=== PATIENT | female | born 1985 | race Caucasian/White ===

== ENCOUNTER 2018-08-16 10:09 | Inpatient (IN) ==
[2018-08-16] MEDS ORDERED: RINGER'S SOLUTION,LACTATED 1,000 ML IV ONE (10:56)
[2018-08-16] MEDS ORDERED: DEXTROSE 5%-LACTATED RINGERS 1,000 ML IV PRN (10:56)
[2018-08-16] MEDS ORDERED: OXYTOCIN/DEXTROSE 5%-WATER 30 UNITS/500 ML BAG IV ONE ×2 (10:56→17:50)
[2018-08-16] MEDS ORDERED: LIDOCAINE HCL 50 ML VIAL PERI PRN (10:56)
[2018-08-16] MEDS ORDERED: ONDANSETRON HCL/PF 2 MG/ML VIAL IV PRN ×3 (10:56→14:39)
--- NOTE | 2018-08-16 13:04 | HP ---
Chief Complaint - Chief Complaint Date of Service: 08/16/18 Time of Service: 12:55 Chief Complaint: decreased movement and mild contractions History of Present Illness: 32 yo at 38 3/7 wks presents to L&D in labor. Patient was seen in office for decreased movement and was noted to have elevated BPs and on NST to have frequent contractions. Her cervix was dilated to 6/80/-2, so she was sent to L&D. 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 Rh negative Rubella non immune GBS negative Medical History (Last Reviewed 08/16/18 @ 08:59 by Michael Forbes RN) Anemia affecting (Acute) Onset Date: 05/30/18 Psoriasis (Chronic) Onset Date: ~2012 Migraine (Chronic) Onset Date: Unknown Vaginal discharge Onset Date: 03/05/14 Vaginal lesion Onset Date: 03/05/14 Abnormal Pap smear of cervix Onset Date: 11/02/08 Last pap 03/13/14 WNL Anemia As a teenager. 06/25/12 w/ . 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 Family History: Family History (Last Reviewed 08/16/18 @ 08:59 by Michael Forbes RN) Mother Anemia Diabetes Hypercholesterolemia Thyroid disease Peripheral vascular disease Uterine fibroid Father Hypercholesterolemia Hypertension Lung cancer "Blue Feet Syndrome" Daughter Cystic fibrosis Aunt Anemia Asthma Diabetes Thyroid disease Molar Grandfather , Paternal Grandfather Hypercholesterolemia Hypertension Lung cancer Grandfather Diabetes Peripheral vascular disease Arthritis Testicular cancer Aortic aneurysm Prostate cancer Kidney problem Grandmother Arthritis Uterine fibroid Asthma Diabetes Hypertension Uncle Diabetes Colitis Inguinal hernia Social History: Preferred Language Yoruba Smoking Status Never smoker (Last Reviewed 08/16/18 @ 08:59 by Michael Forbes RN) No Social History Section defined Review Of Systems (GEN) - Review of Systems Generalized/Overall Review: Present: No Symptoms Reported EENTM: Present: No Symptoms Reported Respiratory: Present: No Symptoms Reported Cardiac: Present: No Symptoms Reported Abdominal: Present: No Symptoms Reported Genitourinary: Present: No Symptoms Reported Musculoskeletal: Present: No Symptoms Reported Neurological: Present: No Symptoms Reported Skin: Present: No Symptoms Reported Endocrine: Present: No Symptoms Reported Immunizations: IMMUNIZATION HX Immunizations Up to Date Yes Allergies/Adverse Reactions: Allergies Allergy/AdvReac Type Severity Reaction Status Date / Time No Known Allergies Allergy Verified 08/16/18 10:29 Home Medications: HOME MEDICATIONS vitamin,calcium,jefqhsdn-ewri-jajrb acid tablet 2 tab PO DAILY tab 02/04/18 [Last Taken 1 Day Ago ~07/04/18] magnesium 250 mg tablet 800 mg PO DAILY tab 04/02/18 [Last Taken 08/16/18] riboflavin (vitamin B2) 50 mg tablet 50 mg PO DAILY 05/02/18 [Last Taken 08/16/18] docusate sodium 100 mg capsule 100 mg PO BID PRN 05/30/18 [Last Taken 08/16/18] ferrous sulfate 325 mg (65 mg iron) tablet,delayed release 325 mg PO BID tab 05/31/18 [Last Taken 08/16/18] valacyclovir 1 gram tablet 1,000 mg PO DAILY #30 tab 08/01/18 [Last Taken 08/16/18] Exam - Exam Vital Signs: Vital Signs - Last Taken Temp 36.4 C 08/16/18 11:33 Pulse 78 08/16/18 11:33 Resp 18 08/16/18 11:33 BP 133/84 08/16/18 11:33 Pulse Ox 98 08/16/18 11:33 Constitutional: Present: Alert, Oriented x3, Cooperative, No distress ENT Exam: Present: hearing grossly normal Neck: Present: non-tender Respiratory: Present: lungs clear, no respiratory distress Cardiovascular/Chest: Present: normal peripheral pulses, regular rate, rhythm, no edema Abdomen: Present: soft, nontender, no rebound tenderness, other - gravid /Rectal: Present: Other - 6/80/-2 Extremity: Present: non-tender, no pedal edema, no calf tenderness Skin Exam: Present: normal color, warm/dry, no cyanosis Lymphatic: Present: no adenopathy Neurologic: Present: alert, normal mood/affect, oriented x 3 Appearance: Present: appropriate appearance, appropriate insight Eye contact: Present: cooperative, good eye contact Thoughts: Present: normal thought pattern Assessment/Plan - Assessment/Plan (1) Labor established Assessment: Admit for routine management of labor. Epidural and pitocin PRN. Problem: Acute (2) Anemia affecting Problem: Acute (3) Psoriasis Problem: Chronic (4) Migraine Problem: Chronic
[2018-08-16] MEDS ORDERED: BUPIVACAINE HCL/0.9 % NACL/PF 250 ML EP PRN ×2 (13:42→14:39)
[2018-08-16] MEDS ORDERED: NALOXONE HCL 1 MG/1 ML SYRG IV PRN ×2 (13:42→14:39)
[2018-08-16] MEDS ORDERED: BUPIVACAINE HCL/PF 30 ML VIAL EP SCH (13:45)
[2018-08-16] MEDS ORDERED: fentaNYL CITRATE/PF 50 MCG/ML AMPUL IT SCH (14:45)
--- NOTE | 2018-08-16 14:52 | ANES ---
Anesthesia Pre Procedure Eval Vitals/Labs: Last Vital Signs Temp 36.4 C 08/16/18 11:33 Pulse 78 08/16/18 11:33 Resp 18 08/16/18 11:33 BP 133/84 08/16/18 11:33 Pulse Ox 98 08/16/18 11:33 HOME MEDICATIONS vitamin,calcium,gbvshqbj-aibh-rewdn acid tablet 2 tab PO DAILY tab 02/04/18 [Last Taken 1 Day Ago ~07/04/18] magnesium 250 mg tablet 800 mg PO DAILY tab 04/02/18 [Last Taken 08/16/18] riboflavin (vitamin B2) 50 mg tablet 50 mg PO DAILY 05/02/18 [Last Taken 08/16/18] docusate sodium 100 mg capsule 100 mg PO BID PRN 05/30/18 [Last Taken 08/16/18] ferrous sulfate 325 mg (65 mg iron) tablet,delayed release 325 mg PO BID tab 05/31/18 [Last Taken 08/16/18] valacyclovir 1 gram tablet 1,000 mg PO DAILY #30 tab 08/01/18 [Last Taken 08/16/18] Allergies/Adverse Reactions: Allergies Allergy/AdvReac Type Severity Reaction Status Date / Time No Known Allergies Allergy Verified 08/16/18 10:29 - Planned Procedure Planned Procedure: ACTIVE LABOR Medication List Reviewed:: Yes Allergies Verified: Yes Medical History (Last Reviewed 08/16/18 @ 14:49 by Paolo Webb CRNA) Anemia affecting (Acute) Onset Date: 05/30/18 Psoriasis (Chronic) Onset Date: ~2012 Migraine (Chronic) Onset Date: Unknown Vaginal discharge Onset Date: 03/05/14 Vaginal lesion Onset Date: 03/05/14 Abnormal Pap smear of cervix Onset Date: 11/02/08 Last pap 03/13/14 WNL Anemia As a teenager. 06/25/12 w/ . 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 Family History (Last Reviewed 08/16/18 @ 14:50 by Paolo Webb CRNA) Mother Anemia Diabetes Hypercholesterolemia Thyroid disease Peripheral vascular disease Uterine fibroid Father Hypercholesterolemia Hypertension Lung cancer "Blue Feet Syndrome" Daughter Cystic fibrosis Aunt Anemia Asthma Diabetes Thyroid disease Molar Grandfather , Paternal Grandfather Hypercholesterolemia Hypertension Lung cancer Grandfather Diabetes Peripheral vascular disease Arthritis Testicular cancer Aortic aneurysm Prostate cancer Kidney problem Grandmother Arthritis Uterine fibroid Asthma Diabetes Hypertension Uncle Diabetes Colitis Inguinal hernia - Family Anesthesia History Family History:: no untoward family reactions to anesthesia, no familial bleeding tendencies, no family history of clotting disorders, no family history of premature - Airway/Neck/Teeth Within Normal Limits:: Yes Teeth Condition: intact Neck Exam: full range of motion Mallampatti Score: 2 Thyromental (T-M) distance: > 6 cm Mandibulo Hyoid distance: > 3 cm - Respiratory Respiratory Physical: lungs clear Smoking Status: Never smoker Discussed smoking cessation including day of surgery: No Sleep Apnea currently treated: No Sleep Apnea by current assessment: No - Cardiovascular Tolerate Activity: Fair Heart Sounds: S1 & S2, Regular - Anesthesia Assessment and Plan ASA Class: PS, II, E Anesthesia Type Plan: Epidural
[2018-08-16] MEDS ORDERED: LIDOCAINE HCL/EPINEPHRINE 20 ML VIAL ONE (14:57)
--- NOTE | 2018-08-16 15:11 | ANES ---
Post Anesthesia Discharge - Transfer of Care Transfer of Care handoff given to nurse: Yes - Discharge from PACU Discharge from PACU when meets criteria: Yes - Comfortable after CSE
--- NOTE | 2018-08-16 15:12 | ANES ---
Anesthesia Procedure Note Procedure Note: ANESTHESIA PROCEDURE NOTE Date of Procedure: 08/16/2017 Time of procedure: 1450. Performed by: Paolo Webb CRNA, MSN Veterinary Pathologist: Latanya Hall RN. Preprocedure diagnosis: Active labor, labor pain. Post procedure diagnosis: Same. Procedure:Epidural for labor analgesia L3 4. Indications: Labor pain. Findings: See below. Details of the procedure: The patient was placed on the side of the bed in sitting positionand prepped with DuraPrep then draped in a sterile fashion. Lidocaine 1% was infiltrated to the skin and subcutaneous tissues at the level of the L3 4 interspace. An 18-gauge Touhy needle was used to approach the epidural space with loss of resistance technique. Once loss of resistance was achieved a 27-gauge spinal needle was passed through the epidural needle and CSF was contacted. After CSF returned, 20 mcg of fentanyl was injected in the spinal needle was removed the epidural catheter was then threaded approximately 4 cm in the epidural needle was removed. The catheter was taped in place and after careful aspiration 3 mL of 1.5% lidocaine with 1-200,000 epinephrine was injected without change in maternal heart rate or sensorium. . EBL: Minimal. Fluids: N/A. Specimen: N/A. Post procedure condition: The patient tolerated the procedure well with good r elief. No complications were noted. Thank you for this consultation. Paolo Webb CRNA, MSN
--- NOTE | 2018-08-16 15:21 | ANES ---
Post Anesthesia Assessment - Vital Signs Vitals: Last Vital Signs Temp 36.4 C 08/16/18 11:33 Pulse 78 08/16/18 15:09 Resp 16 08/16/18 15:09 BP 136/91 H 08/16/18 15:09 Pulse Ox 98 08/16/18 15:09 Airway Patency: Normal - Mental Status Level Of Consciousness: Awake - Pain Level Pain Score: 0 - membranes ruptured - N/V Assessment Nausea/Vomiting Presence: None Dehydration:: No
--- NOTE | 2018-08-16 15:42 | PN ---
Progess Note - Interim Date: 08/16/18 Time: 15:40 Narrative: 08/16/18 15:40 Patient comfortable with epidural Vital signs stable. Pitocin at 8 mu/min. FHT:150 baseline, reassuring Contractions q 2-3 min Cervix: 8/80/-2, AROM-clear Impression: Intrauterine at 38-3/7 weeks in labor Plan: Continue present plan
[2018-08-16 16:31] LABS: Cocaine Ur Negative (NEGATIVE); Urine Barbiturate Negative (NEGATIVE); Urine Benzodiazepines Negative (NEGATIVE); Urine Opiates Negative (NEGATIVE); Urine PCP Negative (NEGATIVE); Urine THC Negative (NEGATIVE)
[2018-08-16] MEDS ORDERED: BISACODYL 10 MG SUPP.RECT RC PRN (17:50)
[2018-08-16] MEDS ORDERED: GLYCERIN/WITCH HAZEL LEAF 40 APPL BOX TP PRN (17:50)
[2018-08-16] MEDS ORDERED: BENZOCAINE/MENTHOL 81 SPRAY CAN TP PRN (17:50)
[2018-08-16] MEDS ORDERED: HYDROCORTISONE 30 APPL TUBE TP PRN (17:50)
[2018-08-16] MEDS ORDERED: oxyCODONE HCL/ACETAMINOPHEN 1 TAB TABLET PO PRN ×2 (17:50)
[2018-08-16] MEDS ORDERED: SENNOSIDES 8.6 MG TABLET PO PRN (17:50)
--- NOTE | 2018-08-16 17:52 | OR ---
Operative Report - Dictated Report Narrative: Spontaneous vaginal delivery of vigorous crying viable male at 1731 on the 08/16/2018 with Apgars 9 and 9, weighing 3181 g in EDY position. Cord clamping delayed approximately 1 minute Placenta delivered complete, intact, with three vessel cord Estimated blood loss: less than 50 ml Anesthesia: epidural Lacerations: None History for MU Definition: * The number of deliveries resulting in a live the patient experienced prior to current hospitalization * The previous delivery of live twins or any live multiple gestation is considered one live event. *If primagravida or nulliparous is documented select zero for the number of previous live births. Live Events: 1
[2018-08-16] MEDS: DOCUSATE SODIUM 100 MG CAPSULE PO SCH (21:33)
[2018-08-17] MEDS: IBUPROFEN 800 MG TABLET PO PRN ×4 (00:03→19:53)
[2018-08-17] MEDS: DOCUSATE SODIUM 100 MG CAPSULE PO SCH ×3 (12:15→20:21)
--- NOTE | 2018-08-17 18:18 | PN ---
Subjective - Date and Time Seen Date: 08/17/18 Time: 18:16 Objective - Vitals Vitals: Last Vital Signs Temp 36.7 C 08/17/18 14:00 Pulse 86 08/17/18 14:00 Resp 18 08/17/18 14:00 BP 130/81 08/17/18 14:00 Pulse Ox 98 08/17/18 14:00 Patient complains of some mild right lower back/hip pain Lochia wnl Abdomen - soft, nontender Uterus - firm, at umbilicus - 1 No calf tenderness Impression: day #1 - s/p spontaneous vaginal delivery. Hip\back pain probably musculoskeletal due to labor Plan: Continue routine care. Heating pad when necessary. If pain continues will do further evaluation. Cauti Physician Documentation - Urinary Catheter Management Urethral (Lugo) Date of Insertion: 08/16/18 Time of Insertion: 15:14 Date of Removal: 08/16/18 Time of Removal: 17:24 Assessment/Plan - Problems/Diagnosis (1) Labor established Problem: Acute (2) Anemia affecting Problem: Acute (3) Psoriasis Problem: Chronic (4) Migraine Problem: Chronic
[2018-08-18] MEDS: IBUPROFEN 800 MG TABLET PO PRN ×2 (01:54→07:50)
[2018-08-18] MEDS: DOCUSATE SODIUM 100 MG CAPSULE PO SCH ×2 (07:50→10:00)
[2018-08-18 08:05] VITALS: BP 130/75
--- NOTE | 2018-08-18 11:56 | PN ---
Subjective - Date and Time Seen Date: 08/18/18 Time: 11:55 Objective - Vitals Vitals: Last Vital Signs Temp 36.2 C 08/18/18 07:57 Pulse 64 08/18/18 07:57 Resp 18 08/18/18 07:57 BP 130/75 08/18/18 07:57 Pulse Ox 98 08/18/18 07:57 Patient denies complaints. Breast-feeding Lochia wnl Abdomen - soft, nontender Uterus - firm, at umbilicus - 2 No calf tenderness Impression: day #2 - s/p spontaneous vaginal delivery. Infant with elevated bilirubin under bilirubin lights-may not home today. Plan: Routine discharge instructions. Board for baby if is not discharged Cauti Physician Documentation - Urinary Catheter Management Urethral (Lugo) Date of Insertion: 08/16/18 Time of Insertion: 15:14 Date of Removal: 08/16/18 Time of Removal: 17:24 Assessment/Plan - Problems/Diagnosis (1) Labor established Problem: Acute (2) Anemia affecting Problem: Acute (3) Psoriasis Problem: Chronic (4) Migraine Problem: Chronic
== END 2018-08-18 16:00 | disposition home or self-care (01) | DRG 806 ==
LOC: OB 10:09
PROVIDERS: ADMIT Obstetrics & Gynecology; ATTEND Obstetrics & Gynecology
CPT/HCPCS: 59025; 80307

== ENCOUNTER 2020-06-14 19:41 | Inpatient (IN) ==
[2020-06-14] MEDS ORDERED: RINGER'S SOLUTION,LACTATED 1,000 ML IV ONE ×2 (21:20→23:39)
[2020-06-14] MEDS ORDERED: ONDANSETRON HCL/PF 2 MG/ML VIAL IV PRN (23:38)
[2020-06-14] MEDS ORDERED: BUPIVACAINE HCL/0.9 % NACL/PF 250 ML EP PRN (23:38)
[2020-06-14] MEDS ORDERED: NALOXONE HCL 1 MG/1 ML SYRG IV PRN (23:38)
[2020-06-14] MEDS ORDERED: OXYTOCIN/0.9 % SODIUM CHLORIDE 30 UNITS/500 ML BAG IV ONE (23:39)
[2020-06-14] MEDS ORDERED: LIDOCAINE HCL 50 ML VIAL PERI PRN (23:39)
[2020-06-14] MEDS ORDERED: ONDANSETRON 4 MG TAB.RAPDIS PO PRN (23:39)
[2020-06-14] MEDS ORDERED: fentaNYL CITRATE/PF 50 MCG/ML AMPUL IT SCH (23:45)
--- NOTE | 2020-06-15 00:31 | ANES ---
Anesthesia Pre Procedure Eval Vitals/Labs: Last Vital Signs Temp 37.0 C 06/15/20 00:06 Pulse 76 06/15/20 00:06 Resp 18 06/15/20 00:06 BP 121/76 06/15/20 00:06 Pulse Ox 98 06/15/20 00:06 HOME MEDICATIONS ascorbic acid (vitamin C) 500 mg capsule 500 mg PO DAILY 12/23/19 [Last Taken 06/13/20] prenat.vits,kristian,hoq-miti-ptfco 1 tab PO DAILY 12/23/19 [Last Taken 06/13/20] ferrous sulfate 325 mg (65 mg iron) tablet,delayed release 325 mg PO DAILY #30 tab 04/19/20 [Last Taken 06/13/20] Magnesium 800 mg PO DAILY 05/28/20 [Last Taken 06/13/20] valacyclovir 500 mg tablet 500 mg PO BID #60 tab 06/03/20 [Last Taken Unknown] Allergies/Adverse Reactions: Allergies Allergy/AdvReac Type Severity Reaction Status Date / Time No Known Allergies Allergy Verified 06/03/20 12:02 - Planned Procedure Planned Procedure: Labor epidural Medication List Reviewed:: Yes Allergies Verified: Yes Medical History (Last Reviewed 06/15/20 @ 00:27 by Paolo Webb CRNA) Anemia (Resolved) As a teenager. 06/25/12 w/ . 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 Family History (Last Reviewed 06/15/20 @ 00:28 by Paolo Webb CRNA) Mother Anemia Diabetes Hypercholesterolemia Thyroid disease Peripheral vascular disease Uterine fibroid Father Hypercholesterolemia Hypertension Lung cancer "Blue Feet Syndrome" Daughter Cystic fibrosis Aunt Anemia Asthma Diabetes Thyroid disease Molar Grandfather , Paternal Grandfather Hypercholesterolemia Hypertension Lung cancer Grandfather Diabetes Peripheral vascular disease Arthritis Testicular cancer Aortic aneurysm Prostate cancer Kidney problem Grandmother Arthritis Uterine fibroid Asthma Diabetes Hypertension Uncle Diabetes Colitis Inguinal hernia - Family Anesthesia History Family History:: no untoward family reactions to anesthesia, no familial bleeding tendencies, no family history of clotting disorders, no family history of premature - Airway/Neck/Teeth Within Normal Limits:: Yes Neck Exam: full range of motion Mallampatti Score: 2 Thyromental (T-M) distance: > 6 cm Mandibulo Hyoid distance: > 3 cm - Respiratory Respiratory Physical: lungs clear Sleep Apnea currently treated: No Sleep Apnea by current assessment: No - Cardiovascular Tolerate Activity: Fair Heart Sounds: S1 & S2, Regular - Gastrointestinal NPO since: CSE for labor analgesia - Anesthesia Assessment and Plan ASA Class: PS, II, E Anesthesia Type Plan: Epidural - CSE for labor analgesia
--- NOTE | 2020-06-15 01:16 | ANES ---
Anesthesia Procedure Note Procedure Note: ANESTHESIA PROCEDURE NOTE Date of Procedure: 06/15/2020 Time of procedure: 12:45 AM. Performed by: KATHERINE Noriega CRNA, MSN Automation Engineer: Brooke Russo RN. Preprocedure diagnosis: Active labor, labor pain. Post procedure diagnosis: Same. Procedure:Epidural for labor analgesia L3-4. Indications: Labor pain. Findings: See below. Details of the procedure: The patient was placed on the side of the bed in sitting positionand prepped with DuraPrep then draped in a sterile fashion. Li docaine 1% was infiltrated to the skin and subcutaneous tissues at the level of the L3-4 interspace. An 18-gauge Touhy needle was used to approach the epidural space with loss of resistance technique. I initially had much difficulty identifying the space and momentarily paused the procedure for repositioning. After readjusting the patient appeared to be symmetrical and I again approached with an 18-gauge Touhy needle. Once loss of resistance was achieved a 27-gauge spinal needle was passed through the epidural needle and CSF was contacted. After CSF returned, 20 mcg of fentanyl was injected in the spinal needle was removed the epidural catheter was then threaded approximately 4 cm in the epidural needle was removed. The catheter was taped in place and after careful aspiration 3 mL of 1.5% lidocaine with 1-200,000 epinephrine was injected without change in maternal heart rate or sensorium. . EBL: Minimal. Fluids: N/A. Specimen: N/A. Post procedure condition: The patient tolerated the procedure well with good relief. No complications were noted. Thank you for this consultation. Paolo Webb CRNA, ARNP, MSN
--- NOTE | 2020-06-15 01:17 | ANES ---
Post Anesthesia Discharge - Transfer of Care Transfer of Care handoff given to nurse: Yes - Discharge from PACU Discharge from PACU when meets criteria: Yes - Comfortable post CSE
--- NOTE | 2020-06-15 01:26 | ANES ---
Post Anesthesia Assessment - Vital Signs Vitals: Last Vital Signs Temp 37.0 C 06/15/20 00:06 Pulse 76 06/15/20 00:06 Resp 18 06/15/20 00:06 BP 121/76 06/15/20 00:06 Pulse Ox 98 06/15/20 00:06 Airway Patency: Normal - Mental Status Level Of Consciousness: Awake, Alert, Appropriate - Pain Level Pain Score: 0 - N/V Assessment Nausea/Vomiting Presence: None Dehydration:: No
[2020-06-15] MEDS: DEXTROSE 5%-LACTATED RINGERS 1,000 ML IV PRN ×2 (02:16→11:00)
[2020-06-15] MEDS ORDERED: ACETAMINOPHEN 325 MG TABLET PO ONE (05:10)
[2020-06-15] MEDS ORDERED: OXYTOCIN/0.9 % SODIUM CHLORIDE 30 UNITS/500 ML BAG IV ONE ×2 (06:59→13:04)
--- NOTE | 2020-06-15 09:14 | HP ---
Chief Complaint - Chief Complaint Date of Service: 06/15/20 Time of Service: 08:57 Chief Complaint: painful frequent contractions History of Present Illness: 34 yo admitted at 36w1d with frequent painful contractions since about 1700 last pm. Patient presented to labor and delivery dilated 380/-2 and progressed to 6/70/-2. Because of the severity of her pain she requested an epidural. After the epidural, over the past several hours, her contractions spaced out to every 8 to 10 minutes. The option to turn off the epidural and allow her to go home until her contractions become stronger versus staying and augmenting her labor with Pitocin and/or breaking her water were discussed. The risk, benefits, and alternatives were discussed in detail. Because patient lives far from the hospital, arranging childcare to come in quickly would be difficult, and her history of fast labors, she decided to proceed with delivery. This complicated by anemia, migraines, CF carrier, h/o HSV, and h/o PTD (36wks). Patient was prescribed prophylactic Valtrex for history of HSV, but she has not yet started it. She denies any signs/symptoms of HSV infection. Rh negative Rubella Nonimmune GBS negative Medical History (Last Reviewed 06/15/20 @ 09:06 by Gm Tillman DO) Anemia (Resolved) As a teenager. 06/25/12 w/ . 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 Family History: Family History (Last Reviewed 06/15/20 @ 09:06 by Gm Tillman DO) Mother Anemia Diabetes Hypercholesterolemia Thyroid disease Peripheral vascular disease Uterine fibroid Father Hypercholesterolemia Hypertension Lung cancer "Blue Feet Syndrome" Daughter Cystic fibrosis Aunt Anemia Asthma Diabetes Thyroid disease Molar Grandfather , Paternal Grandfather Hypercholesterolemia Hypertension Lung cancer Grandfather Diabetes Peripheral vascular disease Arthritis Testicular cancer Aortic aneurysm Prostate cancer Kidney problem Grandmother Arthritis Uterine fibroid Asthma Diabetes Hypertension Uncle Diabetes Colitis Inguinal hernia Social History: (Last Reviewed 06/15/20 @ 09:06 by Gm Tillman DO) Social History: Marital status: household members: significant other, children number of children: 1 current occupational status: employed current occupation: executive search consultant of [email or web address] current occupational exposures/hazards: No Highest education level completed: Bachelor's degree Service: No Tobacco: Smoking Status: Never smoker Alcohol: alcohol intake: former details: none since LMP Substance Use: substance use type: does not use Dietary Habits: caffeine: Yes caffeine comment: 1/day Type: coffee Pamela/Anabaptist: agree to transfusion: Yes Review Of Systems (GEN) - Review of Systems Generalized/Overall Review: Present: No Symptoms Reported EENTM: Present: No Symptoms Reported Respiratory: Present: No Symptoms Reported Cardiac: Present: No Symptoms Reported Abdominal: Present: Other - painful contractions Genitourinary: Present: No Symptoms Reported Musculoskeletal: Present: No Symptoms Reported Neurological: Present: No Symptoms Reported Skin: Present: No Symptoms Reported Endocrine: Present: No Symptoms Reported Immunizations: IMMUNIZATION HX Immunizations Up to Date Yes History of Influenza Vaccine Yes Hx Pneumococcal Vaccination No Allergies/Adverse Reactions: Allergies Allergy/AdvReac Type Severity Reaction Status Date / Time No Known Allergies Allergy Verified 06/03/20 12:02 Home Medications: HOME MEDICATIONS ascorbic acid (vitamin C) 500 mg capsule 500 mg PO DAILY 12/23/19 [Last Taken 06/13/20] prenat.vits,kristian,ysu-nvis-hukmh 1 tab PO DAILY 12/23/19 [Last Taken 06/13/20] ferrous sulfate 325 mg (65 mg iron) tablet,delayed release 325 mg PO DAILY #30 tab 04/19/20 [Last Taken 06/13/20] Magnesium 800 mg PO DAILY 05/28/20 [Last Taken 06/13/20] valacyclovir 500 mg tablet 500 mg PO BID #60 tab 06/03/20 [Last Taken Unknown] Exam - Exam Vital Signs: Vital Signs - Last Taken Temp 37.0 C 06/15/20 00:06 Pulse 76 06/15/20 00:06 Resp 18 06/15/20 00:06 BP 121/76 06/15/20 00:06 Pulse Ox 98 06/15/20 00:06 Constitutional: Present: Alert, Oriented x3, Cooperative, Moderate distress - due to contractions ENT Exam: Present: hearing grossly normal Breasts: Present: Exam deferred Respiratory: Present: lungs clear, no respiratory distress Cardiovascular/Chest: Present: normal peripheral pulses, regular rate, rhythm, no edema Abdomen: Present: soft, nontender, no rebound tenderness, other - gravid /Rectal: Present: Other - Cervix 6/70/-2, no HSV lesions seen Extremity: Present: no pedal edema, no calf tenderness Skin Exam: Present: normal color, warm/dry, no cyanosis Lymphatic: Present: no adenopathy Neurologic: Present: alert, normal mood/affect, oriented x 3, other - DTR 2/4, no clonus Appearance: Present: appropriate appearance, appropriate insight Eye contact: Present: cooperative, good eye contact Thoughts: Present: normal thought pattern, normal mood /affect Assessment/Plan - Assessment/Plan (1) labor Assessment: Admit patient for routine management of labor. Epidural given. 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
--- NOTE | 2020-06-15 09:16 | PN ---
Progess Note - Interim Date: 06/15/20 Time: 09:14 Narrative: 06/15/20 09:14 Patient comfortable with epidural Vital signs stable. Pitocin at 6 mu/min. FHT: 135 baseline, reassuring contractions q 2-3 min Cervix: 6-7/80/-2, AROM at 0850-clear Impression: Intrauterine at 36 1/7 weeks and labor. Plan: Anticipate normal spontaneous vaginal delivery soon.
[2020-06-15] MEDS ORDERED: METOCLOPRAMIDE HCL 5 MG/ML VIAL IV PRN (09:47)
[2020-06-15] MEDS ORDERED: diphenhydrAMINE HCL 50 MG/ML VIAL IV ONE (09:47)
[2020-06-15 10:03] LABS: Hematocrit 32.3 % (37.0-47.0); Hemoglobin 10.6 gm/dL (12.5-16.0); Mean Cell Volume 84.8 fl (78-100); Mean Corpuscular Hemoglobin 27.8 pg (27-31); Mean Corpuscular Hgb Conc 32.8 g/dl (32-36); Mean Platelet Volume 10.5 fl (8-12.5); Neutrophil # 5.9 K/mm3 (1.3-6.0); Platelet Count 169 K/mm3 (150-450); Red Blood Count 3.81 M/mm3 (4.2-5.4); White Blood Count 8.8 K/mm3 (4.0-10.5)
[2020-06-15 11:08] LABS: Albumin * 2.5 gm/dl (3.4-5.0); Anion Gap 12.8 mmol/L (6.8-13.8); BUN/Creatinine Ratio 5.9 (9.0-21.6); Bilirubin, Total 0.3 mg/dL (0.0-1.1); Ca. Corrected For Albumin 9.2 mg/dL (8.4-10.2); Calcium * 8.3 mg/dL (7.9-10.9); Potassium 3.8 mmol/L (3.4-4.6); Total Protein 6.5 gm/dL (6.2-8.2)
[2020-06-15] MEDS ORDERED: BISACODYL 10 MG SUPP.RECT RC PRN (13:04)
[2020-06-15] MEDS ORDERED: GLYCERIN/WITCH HAZEL LEAF 40 APPL BOX TP PRN (13:04)
[2020-06-15] MEDS ORDERED: SENNOSIDES 8.6 MG TABLET PO PRN (13:04)
[2020-06-15] MEDS ORDERED: BENZOCAINE/MENTHOL 81 SPRAY CAN TP PRN (13:04)
[2020-06-15] MEDS ORDERED: HYDROCORTISONE 30 APPL TUBE TP PRN (13:04)
--- NOTE | 2020-06-15 13:48 | OR ---
Operative Report - Dictated Report Narrative: Spontaneous vaginal delivery of viable male at 1248 on 06/15/2020 with Apgars 8 and 9, weighing 2863 g in [place] position. Cord clamping delayed approximately 1 minute Placenta delivered complete, intact, with three vessel cord Estimated blood loss: 200 mL Anesthesia: Epidural Lacerations: None History for MU History for Definition: * The number of deliveries resulting in a live the patient experienced prior to current hospitalization * The previous delivery of live twins or any live multiple gestation is considered one live event. *If primagravida or nulliparous is documented select zero for the number of previous live births. Live Events: Live Events: 2
[2020-06-15] MEDS: IBUPROFEN 800 MG TABLET PO PRN ×2 (15:41→22:42)
[2020-06-15] MEDS ORDERED: RHO(D) IMMUNE GLOBULIN 1,500 UNIT SYRINGE IM ONE (16:08)
[2020-06-15] MEDS: DOCUSATE SODIUM 100 MG CAPSULE PO SCH (21:06)
[2020-06-16] MEDS: IBUPROFEN 800 MG TABLET PO PRN ×2 (09:58→18:36)
[2020-06-16] MEDS: DOCUSATE SODIUM 100 MG CAPSULE PO SCH ×2 (09:59→23:16)
--- NOTE | 2020-06-16 10:27 | PN ---
Subjective - Date and Time Seen Date: 06/16/20 Time: 09:45 Objective - Vitals Vitals: Last Vital Signs Temp 36.4 C 06/16/20 07:08 Pulse 79 06/16/20 07:08 Resp 18 06/16/20 07:08 BP 122/74 06/16/20 07:08 Pulse Ox 99 06/16/20 07:08 Patient denies complaints. Breast-feeding Lochia wnl abdomen - soft, nontender Uterus -firm, at umbilicus - 1 No calf tenderness Impression: day #1 - s/p spontaneous vaginal delivery. Plan: Continue routine care - Abnormal Lab Findings Abnormal Lab Findings: Abnormal Lab Results 06/15/20 Range/Units 10:00 Carbon Dioxide 23.0 L (24-32.6) mmol/L BUN/Creatinine Ratio 5.9 L (9.0-21.6) ALT 13 L (19-67) U/L Albumin 2.5 L (3.4-5.0) gm/dl Cauti Physician Documentation - Urinary Catheter Management Urethral (Lugo) Date of Insertion: 06/15/20 Time of Insertion: 01:56 Date of Removal: 06/15/20 Time of Removal: 12:40 Assessment/Plan - Problems/Diagnosis (1) labor Problem: Acute Qualifiers: labor trimester: third trimester labor delivery status: with delivery in third trimester Fetus number: single or unspecified fetus Qualified Code(s): O60.14X0 - labor third trimester with delivery third trimester, not applicable or unspecified (2) 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
[2020-06-16] MEDS: oxyCODONE HCL/ACETAMINOPHEN 1 TAB TABLET PO PRN (12:05)
[2020-06-17] MEDS: IBUPROFEN 800 MG TABLET PO PRN (03:10)
[2020-06-17 07:16] VITALS: BP 124/74
[2020-06-17] MEDS: oxyCODONE HCL/ACETAMINOPHEN 1 TAB TABLET PO PRN (08:33)
[2020-06-17] MEDS: DOCUSATE SODIUM 100 MG CAPSULE PO SCH (08:35)
--- NOTE | 2020-06-17 08:50 | PN ---
Subjective - Date and Time Seen Date: 06/17/20 Time: 08:50 Objective - Vitals Vitals: Last Vital Signs Temp 36.8 C 06/17/20 07:10 Pulse 78 06/17/20 07:10 Resp 16 06/17/20 07:10 BP 124/74 06/17/20 07:10 Pulse Ox 98 06/17/20 07:10 Patient denies complaints. Breast-feeding Lochia wnl abdomen - soft, nontender Uterus -firm, at umbilicus - 2 No calf tenderness Impression: day #2 - s/p spontaneous vaginal delivery. 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
--- NOTE | 2020-06-17 08:55 | DS ---
OB Discharge Summary (1) labor Status: Resolved Qualifiers: labor trimester: third trimester labor delivery status: with delivery in third trimester Fetus number: single or unspecified fetus Qualified Code(s): O60.14X0 - labor third trimester with delivery third trimester, not applicable or unspecified (2) Cystic fibrosis carrier Status: Chronic (3) HSV antigen DIF positive Status: Chronic (4) Hx of migraines Status: Chronic (5) Rubella non-immune status, antepartum Status: Chronic (6) History of labor Status: Chronic (7) Rh negative status during Status: Chronic Qualifiers: Trimester: third trimester Qualified Code(s): O26.893 - Other specified related conditions, third trimester; Z67.91 - Unspecified blood type, Rh negative (8) Anemia Status: Chronic Qualifiers: Anemia type: iron deficiency Iron deficiency anemia type: inadequate dietary iron intake Qualified Code(s): D50.8 - Other iron deficiency anemias Delivery Date: 06/15/20 Delivery Time: 12:48 :: 3 Para:: 3 Gestational weeks:: 36 Gestational days:: 1 Intrapartum Procedures: Spontaneous Vaginal Delivery, Delivered, Anesthesia - Epidural /OP Complications: No Complications Discharge Diagnosis: Delivery, Rubella Nonimmune - Discharge Information Date of Discharge: 06/17/20 Hospital Course: 34-year-old 3 para 1-1-0-2 admitted at 36 1/7 weeks for labor. Patient delivered a viable male without complications. Both mother and baby did well and were discharged on day #2 with routine discharge instructions. Discharge Location: Home Disposition: Home self-care Condition: Good Activity on Discharge:: Activity as tolerated, Pelvic Rest Discharge Diet: General/regular food Additional Patient Instructions (free text): Nina your follow up appointment is scheduled for July 15 @ 9:[address] Tillman. Barry has a f/u appointment Sunday06/18/20 at 8:[address] Varghese. Congratulations on the of your son! Thank you for letting us care for you and your baby here at [facility]:) Prescriptions (Any new or edited meds): Ibuprofen [Motrin] 200 - 800 mg PO Q6H PRN #100 tab PRN Reason: Pain Complete Home Medications List: Complete Home Medication List: ascorbic acid (vitamin C) 500 mg capsule 500 mg PO DAILY 12/23/19 prenat.vits,kristian,pfr-lppl-wxeld 1 tab PO DAILY 12/23/19 ferrous sulfate 325 mg (65 mg iron) tablet,delayed release 325 mg PO DAILY #30 tab 04/19/20 Magnesium 800 mg PO DAILY 05/28/20 Ibuprofen [Motrin] 200 - 800 mg PO Q6H PRN #100 tab 06/16/20 - Plan Discharge to:: Home Follow up in office in:: 3-4 weeks - [place] Information Weight (Grams): 2,863 Sex: Male Score 1 min: 8 Score 5 min: 9 Circumcision: Yes Infant Complications: None
== END 2020-06-17 16:30 | disposition home or self-care (01) | DRG 806 ==
LOC: OBCLINIC 19:41 → OB 23:26
PROVIDERS: ADMIT Obstetrics & Gynecology; ATTEND Obstetrics & Gynecology
DX: Z67.91 Unspecified blood type, Rh negative; O98.52 Other viral diseases complicating childbirth; O99.834 Other infection carrier state complicating childbirth; Z3A.36 36 weeks gestation of pregnancy; O26.893 Other specified pregnancy related conditions, third trimester; Z37.0 Single live birth; O99.02 Anemia complicating childbirth; D50.9 Iron deficiency anemia, unspecified; O60.14X0 Preterm labor third trimester with preterm delivery third trimester, not applicable or unspecified; Z14.1 Cystic fibrosis carrier